=== PATIENT | female | born 1950 | race Caucasian/White ===

== ENCOUNTER 2017-03-03 14:25 | Emergency (ER) | payer MEDICARE ==
[2017-03-03 15:25] LABS: Bilirubin Negative (Negative); Glucose, Urine (Dipstick) Negative (Negative); Ketone, Urine Negative (Negative); Protein, Urine (Dipstick) Negative (Neg-Trace)
[2017-03-03 15:26] LABS: Bacteria/HPF 4+ HPF (None Seen); Hyaline Casts/LPF 0-3 HYALINE CAST LPF (0-3 Hyaline); Squamous Epithelial None Seen HPF (0-3)
[2017-03-03 15:30] LABS: Blood, Urine Moderate (Negative); Nitrite Unable to Interpret (Negative)
[2017-03-03 15:34] LABS: Yeast-All Forms None Seen HPF (None Seen)
[2017-03-03 17:21] LABS: #Basophils 0.1 thou/uL (0.0-0.2); #Lymphocytes 1.7 thou/uL (1.20-3.40); #Monocytes 0.4 thou/uL (0.11-0.59); #Neutrophils 6.6 thou/uL (1.40-6.50); %Basophils 0.8 % (0.0-1.0); %Eosinophils 0.6 % (0.0-10.0); %Lymphocytes 19.3 % (21.0-51.0); %Monocytes 4.4 % (0.0-10.0); Hematocrit 42.6 % (36.0-47.0); Mean Platelet Volume 7.8 fL (7.4-10.4); Red Blood Cell (RBC) Count 4.45 mill/uL (4.20-5.40); White Blood Cell (WBC) Count 8.8 thou/uL (4.8-10.8)
[2017-03-03 17:38] LABS: ALT (SGPT) 15 U/L (8-55); AST (SGOT) 25 U/L (5-34); Alkaline Phosphatase 60 U/L (40-150); Anion Gap 14 mmol/L (10-20); BUN (Urea Nitrogen) 15 mg/dL (9.8-20.1); Bilirubin, Total 0.8 mg/dL (0.2-1.2); Calc. Creatinine Clearance 0 mL/min (70-130); Calcium 9.7 mg/dL (7.8-10.44); Carbon Dioxide 21 mmol/L (23-31); Chloride 102 mmol/L (98-107); Estimated GFR-MDRD 54; Globulin 2.8 g/dL (2.4-3.5); Protein, Total 7.2 g/dL (6.0-8.3)
== END 2017-03-03 18:35 | disposition home or self-care (01) ==
LOC: ERS 14:25
DX: N39.0 Urinary tract infection, site not specified (principal); R19.7 Diarrhea, unspecified; E03.9 Hypothyroidism, unspecified; K90.0 Celiac disease; E78.5 Hyperlipidemia, unspecified; M19.90 Unspecified osteoarthritis, unspecified site; J44.9 Chronic obstructive pulmonary disease, unspecified; F32.9 Major depressive disorder, single episode, unspecified
CPT/HCPCS: 80053; 81003; 81015; 85025; 99284

== ENCOUNTER 2017-06-27 14:27 | Outpatient (CLI) | payer MEDICARE | END 2017-06-27 14:28 | disposition home or self-care (01) | LOC: BICMAMMO 14:27 | PROVIDERS: ATTEND Family Medicine | DX: Z12.31 Encounter for screening mammogram for malignant neoplasm of breast (principal); Z80.3 Family history of malignant neoplasm of breast | CPT/HCPCS: 77063; 77067 ==

== ENCOUNTER 2017-11-07 14:09 | Outpatient (CLI) | payer MEDICARE ==
[~2017-11-07 14:09] MED LIST: Gadobenate Dimeglumine 529 MG/1 ML (20ML VIAL) ONE
== END 2017-11-07 14:10 | disposition home or self-care (01) ==
LOC: BICMRI 14:09
PROVIDERS: ATTEND Otolaryngology Otology & Neurotology
DX: D33.3 Benign neoplasm of cranial nerves (principal); H91.90 Unspecified hearing loss, unspecified ear; H93.19 Tinnitus, unspecified ear; R93.0 Abnormal findings on diagnostic imaging of skull and head, not elsewhere classified
CPT/HCPCS: 70480; 70553; 82565; A9579

== ENCOUNTER 2018-02-09 13:39 | Outpatient (CLI) | payer MEDICARE ==
--- NOTE | 2018-02-09 15:48 | CT ---
CT ABDOMEN AND PELVIS WITHOUT CONTRAST: Multiple axial tomograms are obtained through the abdomen and pelvis without IV enhancement. HISTORY: UTI and back pain. FINDINGS: The lung bases are clear. The liver, spleen, and pancreas appear unremarkable. Post cholecystectomy changes are noted. The adrenal gland is normal. Kidneys unremarkable. No hydronephrosis. No evidence of urinary tract calculus. Small bowel lops appear normal caliber. The left colon is nondistended. The appendix is not identif ied. Urinary bladder is distended and appears unremarkable. The patient appears to be post hysterec gem. Aorta is normal caliber. No adenopathy apparent. IMPRESSION: No evidence of acute process. POS: [facility]
== END 2018-02-09 13:40 | disposition home or self-care (01) ==
LOC: BICCT 13:39
PROVIDERS: ATTEND Urology
DX: M54.89 Other dorsalgia (principal); Z87.440 Personal history of urinary (tract) infections
CPT/HCPCS: 74176

== ENCOUNTER 2018-05-22 13:41 | Outpatient (CLI) | payer MEDICARE ==
--- NOTE | 2018-05-22 16:57 | BD ---
BONE DENSITOMETRY USING DEXA: Date: 05/22/18 HISTORY: Postmenopausal screening for osteoporosis. FINDINGS: Lumbar Spine: BMD (g/cm2) L1 0.766 T-Score: -2.0 Z-Score: -0.2 L2 0.855 T-Score: -1.6 Z-Score: 0.5 L3 0.812 T-Score: -2.5 Z-Score: -0.3 L4 0.768 T-Score: -2.7 Z-Score: -0.4 L1-L4 0.799 T-Score: -2.3 Z-Score: -0.1 Femoral Neck: 0.551 T-Score: -2.7 Z-Score: -0.9 Total Femur: 0.691 T-Score: -2.1 Z-Score: -0.5 IMPRESSION: Osteoporosis. POS: [facility]
== END 2018-05-22 13:42 | disposition home or self-care (01) ==
LOC: BICMAMMO 13:41
PROVIDERS: ATTEND Family Medicine
DX: Z13.820 Encounter for screening for osteoporosis (principal); Z78.0 Asymptomatic menopausal state; M81.0 Age-related osteoporosis without current pathological fracture
CPT/HCPCS: 77080

== ENCOUNTER 2018-06-09 12:09 | Outpatient (CLI) | payer MEDICARE ==
--- NOTE | 2018-06-09 13:40 | RAD ---
LEFT SHOULDER RADIOGRAPHS THREE VIEWS: 06/09/2018 PROVIDED CLINICAL HISTORY: Left shoulder pain. FINDINGS: There is no evidence for fracture or other acute osseous abnormality. Alignment appears anatomic. S ubacromial space appears preserved. The visualized left lung field appears clear. IMPRESSION: No evidence for an acute osseous abnormality or significant arthropathy. POS: [facility]
== END 2018-06-09 12:10 | disposition home or self-care (01) ==
LOC: SCSRAD 12:09
PROVIDERS: ATTEND Family Medicine
DX: M25.512 Pain in left shoulder (principal)

== ENCOUNTER 2018-09-13 13:07 | Outpatient (CLI) | payer MEDICARE ==
--- NOTE | 2018-09-13 15:51 | MRI ---
MRI CERVICAL SPINE WITHOUT CONTRAST: Date: 09/13/18 HISTORY: Cervical radiculopathy. Neck pain, which has gotten worse with radiation to the left shoulder. COMPARISON: 12/27/13. FINDINGS: The vertebral body heights are maintained. Cervical lordosis is present. No tonsillar herniation is s een. The cervical spine cord demonstrates normal course, caliber, and signal. No cord edema, syringom yelia, or myelomalacia is seen. There are disc osteophyte complexes at C4-5, C5-6, and C6-7 levels with uncovertebral hypertrophic ch anges. No significant central canal stenosis or neural foraminal stenosis seen. No cord compression i s identified. IMPRESSION: Cervical spondylosis without evidence of significant central canal stenosis, foraminal stenosis, or c ord compression. POS: [facility]
== END 2018-09-13 13:08 | disposition home or self-care (01) ==
LOC: BICMRI 13:07
PROVIDERS: ATTEND Anesthesiology
DX: M47.22 Other spondylosis with radiculopathy, cervical region (principal)
CPT/HCPCS: 72141

== ENCOUNTER → 2018-11-13 | Day surgery (SDC) | payer MEDICARE ==
[2018-11-10 15:49] VITALS: BMI 20.2
[~2018-11-13] MED LIST changes: -Gadobenate Dimeglumine 529 MG/1 ML (20ML VIAL) ONE; +Iopamidol 370 76% 100 ML VIAL ONE
--- NOTE | 2018-11-13 11:54 | CT ---
CT ANGIOGRAM HEAD: DATE: 11/13/2018 COMPARISON: None. HISTORY: Pulsatile tinnitus, dizziness, headaches. TECHNIQUE: Axial CT imaging at 5 mm intervals from vertex through skull base without contrast. Subseq uently, axial CT imaging obtained at 1.25 mm intervals from the vertex through the skull base with IV contrast using a CT angiogram protocol. Coronal and sagittal 3-D reformatted imaging obtained. FINDINGS: Noncontrast enhanced head CT demonstrates no intracranial hemorrhage, midline shift, or mass effect. The visualized paranasal sinuses and mastoid air cells appear well-aerated. Imaged osseous structures demonstrate no acute findings. Postcontrast imaging demonstrates patency of the distal vertebral arteries bilaterally. The basilar a rtery is relatively hypoplastic with patent bilateral posterior communicating arteries noted. A origin of the right posterior cerebral artery is suspected. There is no saccular aneurysm, high -grade stenosis, or vascular occlusion apparent involving the posterior circulation. The internal carotid artery is tortuous on the right. Imaged cervical ICA demonstrates patency bilate rally. The ICA bifurcation, the A1 segment, the M1 segment, and the MCA bifurcation appears unremarkable mika aterally. Distal ANKUR branches and distal MCA branches appear grossly unremarkable with no high-grade stenosis, vascular occlusion, or saccular aneurysm seen involving the anterior circulation . IMPRESSION: No acute findings. Transcribed Date/Time: 11/13/2018 12:13 PM
== END ==
LOC: CT 10:13
PROVIDERS: ATTEND Otolaryngology Otology & Neurotology
DX: H93.A9 Pulsatile tinnitus, unspecified ear (principal); R42 Dizziness and giddiness; R51 Headache; Z88.1 Allergy status to other antibiotic agents; Z88.0 Allergy status to penicillin; Z88.8 Allergy status to other drugs, medicaments and biological substances; Z79.899 Other long term (current) drug therapy
CPT/HCPCS: 70496; Q9967